=== PATIENT | male | born 1970 | race Caucasian/White ===

== ENCOUNTER 2021-09-01 00:37 | Observation (INO) ==
[2021-09-01] MEDS ORDERED: Naloxone 0.4 MG/ML INJ IVP PRN (04:48)
[2021-09-01] MEDS ORDERED: Acetaminophen 325 MG TABLET PO PRN (04:48)
[2021-09-01] MEDS ORDERED: Ondansetron 4 MG/2 ML VIAL IVP PRN (04:48)
[2021-09-01] MEDS ORDERED: Perflutren Lipid Microsphere 1.3 ML in 0.9 % Sodium Chloride 8.7 ML IVP PRN (04:49)
[2021-09-01] MEDS: 0.9 % Sodium Chloride 1,000 ML IVC SCH ×2 (05:18→14:23)
[2021-09-01 05:26] LABS: Basophils % 0.4 %; Eosinophils # 0.1 K/mcL (0.0-0.6); Eosinophils % 1.3 %; Hematocrit 39.8 % (37.5-50.1); Hemoglobin 13.3 g/dL (12.9-16.9); Immature Granulocytes % 0.4 % (0-4); Lymphocytes # 2.3 K/mcL (0.6-4.6); Lymphocytes % 33.1 %; Mean Corpuscular HGB Conc 33.4 g/dL (31.6-35.5); Mean Corpuscular Hemoglobin 32.2 pg (28.0-33.3); Mean Corpuscular Volume 96.4 fL (83.0-100.0); Mean Platelet Volume 9.4 fL (9.4-12.4); Monocytes % 13.9 %; Neutrophils # 3.6 K/mcL (1.6-8.9); Platelet Count 190 K/mcL (140-400); Red Blood Count 4.13 M/mcL (4.19-5.50); Red Cell Distribution Width 13.4 % (11.5-14.5); Segmented Neutrophils % 50.9 %; White Blood Count 7.1 K/mcL (4.3-11.1)
[2021-09-01 05:28] LABS: Estimated Average Glucose 103 mg/dl; Hemoglobin A1C 5.2 %
[2021-09-01 05:29] LABS: INR 1.2
[2021-09-01 05:31] LABS: Activated Partial Thrombo Time 34.7 Seconds (26.0-36.0)
[2021-09-01 06:07] LABS: Alanine Aminotransferase 25 Units/L (7-52); Albumin 3.7 g/dL (3.5-5.7); Albumin/Globulin Ratio 1.3 (1.1-2.2); Alkaline Phosphatase 57 Units/L (34-104); Aspartate Amino Transferase 16 Units/L (13-39); BUN/Creatinine Ratio 15 (6-26); Bilirubin,Direct 0.2 mg/dL (0.0-0.2); Bilirubin,Indirect 0.6 mg/dL (0.0-1.0); Bilirubin,Total 0.8 mg/dL (0.3-1.0); Blood Urea Nitrogen 17 mg/dL (6-20); Calcium 8.8 mg/dL (8.6-10.3); Carbon Dioxide 24 mEq/L (23-29); Chloride 108 mEq/L (98-107); Globulin 2.8 g/dL (2.4-3.5); Glucose 101 mg/dL (70-105); Osmolality,Calculated 288 (280-300); Sodium 138 mEq/L (136-145); Thyroid Stimulating Hormone 5.397 mcIU/mL (0.340-5.600); Total Protein 6.5 g/dL (6.4-8.9); eGFR For African Americans > 60 (> 60); eGFR For Non-African Americans > 60 (> 60)
[2021-09-01 06:08] LABS: Chol/HDL Ratio 7.5 (0-4.9); Cholesterol 195 mg/dL (< 200); HDL Cholesterol 26 mg/dL (40-59); LDL Cholesterol,Calculated 119 mg/dL (< 100); Magnesium 2.1 mg/dL (1.6-2.6); Phosphorous 3.9 mg/dL (2.7-4.5); Triglycerides 249 mg/dL (< 150); Troponin I < 0.03 ng/mL (< 0.04)
[2021-09-01] MEDS ORDERED: Regadenoson 0.4 MG/5 ML SYRINGE IVP ONE (08:38)
[2021-09-01] MEDS: Aspirin 81 MG TAB.CHEW PO SCH (11:13)
[2021-09-01 17:17] LABS: Bilirubin,Urine Negative (Negative); Blood,Urine Negative (Negative); Clarity,Urine Clear (Clear); Color,Urine Light-Yellow (Yellow); Glucose,Urine (UA) Normal (Normal); Ketones,Urine Negative (Negative); Leukocyte Esterase,Urine Negative (Negative); Nitrite,Urine Negative (Negative); PH,Urine 7.5 pH Units (5.0-8.0); Protein,Urine Negative (Neg-Trace); Specific Gravity,Urine 1.013 (1.010-1.025); Urobilinogen,Urine Normal (Normal)
[2021-09-02] MEDS: 0.9 % Sodium Chloride 1,000 ML IVC SCH (03:42)
[2021-09-02 08:25] VITALS: BP 139/94; PULSE 53; TEMP 98.2; O2SAT 99
[2021-09-02] MEDS: Aspirin 81 MG TAB.CHEW PO SCH (09:33)
== END 2021-09-02 09:50 | disposition home or self-care (01) ==
LOC: 3BNU → SUATTDRO 03:45
PROVIDERS: ADMIT Student in an Organized Health Care Education/Training Program; ATTEND Internal Medicine